=== PATIENT | male | born 1970 | race Caucasian/White ===

== ENCOUNTER 2016-11-29 05:28 | Day surgery (SDC) | payer OTHER ==
[~2016-11-29] VITALS: Ht 182.9 cm; Wt 79.4 kg
[2016-11-29 06:12] VITALS: BP 140/69; Ht 182.9 cm; Wt 79.4 kg
[2016-11-29] MEDS ORDERED: HYDROCODONE-APA1 TAB PO (07:21)
[2016-11-29] MEDS ORDERED: BACTRIM DS TABL1 TAB PO (07:21)
[2016-11-29 07:22] LABS: BASOPHILS 0.8 % (0-2); EOSINOPHILS 5.4 % (0-7); HEMATOCRIT 35.8 % (42.0-54.0); IMMATURE GRANULOCYTES 0.2 % (0-5); LYMPHOCYTES 32.8 % (15-50); MCH 28.5 pg (26.0-34.0); MCHC 33.5 g/dL (31.0-37.0); MEAN PLATELET VOLUME 9.2 fL (7.4-10.4); MONOCYTES 14.4 % (2-11); NEUTROPHILS 46.4 % (40-80); PLATELET COUNT 205 10x3/uL (130-400); RBC 4.21 10x6/uL (4.20-6.10); RDW 12.7 % (11.5-14.5); WBC 4.8 10x3/uL (4.8-10.8)
--- NOTE | 2016-12-01 06:54 | OP ---
PATIENT NAME: VU ALLEN MEDICAL RECORD: [id number] :72 LOCATION:[facility] ADMISSION DATE: SURGEON: REINALDO LUCAS MD DATE OF OPERATION: 11/29/2016 PREOPERATIVE DIAGNOSIS: Right middle finger abscess or felon. POSTOPERATIVE DIAGNOSIS: Right middle finger abscess or felon. PROCEDURE PERFORMED: Right middle finger abscess irrigation and drainage and packing with quarter-inch iodoform gauze. He did receive Ancef and then some vancomycin in the room. Cultures were sent. He tolerated the procedure well, was transferred to the recovery room in stable condition at termination of procedure. INDICATIONS: This is a 46-year-old male that presented to the office yesterday with an abscess involving the essentially pulp position of his index finger. This did not run down his flexure sheath, seemed to be mainly in the DIP joint distally and mainly in the pulp. I cannot think of any specific injury or cause. We discussed the options and felt that this needs to be drained. He understood and wished to proceed. OPERATIVE REPORT: The patient was taken to the operating room, placed in supine position. General anesthesia was obtained. His right hand was confirmed to be the correct hand. Following which, he was prepped and draped in normal fashion. Procedure was begun by making an incision on the ulnar side of the digit. This was taken down, spread with a hemostat and there was certainly pus in this area. I took cultures. It spread through trying to opening up the entire pulp space. Once this was accomplished, I did go ahead and irrigated this area and then packed it with iodoform gauze and then dressing. The cultures will be followed. We will be giving Ancef and vancomycin in the room. I am going to send him home with packing and Bactrim and see him back in the office in about a week. TRANSINT:[id number] Voice Confirmation ID: [id number] DOCUMENT ID: [id number] REINALDO LUCAS MD at [id number] CC: [id number] DICTATION DATE: 11/29/16 0728 STORAGE ENGINEER: 11/29/16 1339 DEP [facility] [place]16 [place] [id number]
[2016-12-04 18:08] LABS: AEROBE ID Final report (())
== END 2016-11-29 09:00 | disposition home or self-care (01) ==
LOC: D.OPS 05:28
PROVIDERS: Anesthesiology; Orthopaedic Surgery Sports Medicine
DX: L02.511 Cutaneous abscess of right hand (principal)